=== PATIENT | male | born 1960 | race Caucasian/White ===

== ENCOUNTER 2017-09-14 12:04 | Day surgery (SDC) | payer BC ==
[~2017-09-14] VITALS: Ht 177.8 cm; Wt 82.7 kg
[~2017-09-14 12:04] MED LIST: METPRE4DP PO; Norco 5-325 Ta1 EACH PO; Robaxin-750750 MG PO; VARE1 PO
== END 2017-09-14 14:50 | disposition home or self-care (01) ==
LOC: ORSCSDS 12:04
PROVIDERS: Surgery
PROC: 0DBM8ZX Excision of Descending Colon, Via Natural or Artificial Opening Endoscopic, Diagnostic (ICD-10-PCS; principal; 2017-09-14 13:45)
DX: Z12.11 Encounter for screening for malignant neoplasm of colon (principal); D12.4 Benign neoplasm of descending colon; F17.210 Nicotine dependence, cigarettes, uncomplicated; Z79.899 Other long term (current) drug therapy
CPT/HCPCS: 88305

== ENCOUNTER 2017-12-02 12:38 | Emergency (ER) | payer BC ==
[~2017-12-02] VITALS: Ht 175.3 cm; Wt 86.2 kg
[2017-12-02] MEDS ORDERED: Prednisone20 MG PO (13:00)
[2017-12-02] MEDS ORDERED: CYCL10 PO (13:11)
[2017-12-02] MEDS ORDERED: Norco 5-325 Ta1 EACH PO (13:11)
== END 2017-12-02 13:25 | disposition home or self-care (01) ==
LOC: ER 12:38
DX: M54.41 Lumbago with sciatica, right side (principal); G89.29 Other chronic pain; Z88.1 Allergy status to other antibiotic agents; Z79.52 Long term (current) use of systemic steroids; Z79.899 Other long term (current) drug therapy; Z87.891 Personal history of nicotine dependence
CPT/HCPCS: 96372; 99283; J1885

== ENCOUNTER → 2018-11-20 | Outpatient (CLI) | payer BC ==
[~2018-11-20] MED LIST changes: +CYCL10 PO; +Prednisone20 MG PO
[2018-11-20 12:34] LABS: BASOPHILS ABSOLUTE AUTO 0.05 K/mm3 (0.00-0.23); BASOPHILS PERCENT AUTO 1 % (0-2); EOSINOPHILS ABSOLUTE AUTO 0.04 K/mm3 (0.00-0.68); EOSINOPHILS PERCENT AUTO 1 % (0-6); Hematocrit 43.5 % (37.0-53.0); Hemoglobin 15.7 g/dL (13.5-17.5); IMMATURE GRAN ABSOLUTE AUTO 0.01 K/mm3 (0.00-0.10); IMMATURE GRAN PERCENT AUTO 0 % (0-1); LYMPHOCYTES ABSOLUTE AUTO 3.08 K/mm3 (0.84-5.20); LYMPHOCYTES PERCENT AUTO 46 % (21-46); MONOCYTES ABSOLUTE AUTO 0.39 K/mm3 (0.16-1.47); MONOCYTES PERCENT AUTO 6 % (4-13); Mean Corpuscular HGB 32.8 pg (26.0-34.0); Mean Corpuscular HGB Conc 36.1 g/dL (31.5-36.5); Mean Corpuscular Volume 91 fL (80-100); Mean Platelet Volume 8.6 fL (9.1-12.4); NEUTROPHILS ABSOLUTE AUTO 3.13 K/mm3 (1.96-9.15); NEUTROPHILS PERCENT AUTO 47 % (41-73); Platelet Count 310 K/mm3 (150-400); RDW Coefficient Variation 12.9 % (11.7-14.2); RDW Standard Deviation 43.3 fL (35.1-46.3); Red Blood Cell Count 4.78 M/mm3 (4.30-5.90)
[2018-11-20 12:51] LABS: Alanine Aminotransfer (ALT/SGP 63 U/L (12-78); Albumin, Blood 4.1 g/dL (3.4-5.0); Albumin/Globulin Ratio 0.9 (0.8-1.8); Alk Phos 79 U/L (40-126); Anion Gap 12 mmol/L (6-16); Aspartate Aminotrans (AST/SGOT 41 U/L (12-37); Bilirubin, Total 0.6 mg/dL (0.1-1.0); Blood Urea Nitrogen 13 mg/dL (8-24); Bun/Creatinine Ratio 12.6 (12.0-20.0); CO2, Blood 27 mmol/L (21-32); CPK Creatine Kinase 248 U/L (39-308); Calcium, Blood 8.8 mg/dL (8.5-10.1); Chloride, Blood 100 mmol/L (98-108); Creatinine, Blood 1.03 mg/dL (0.60-1.20); Free Thyroxine 1.06 ng/dL (0.70-1.60); Globulin, Blood 4.5 g/dL (2.2-4.0); Glomerular Filtration Rate >60 (60-); Glucose, Blood 100 mg/dL (70-99); Potassium, Blood 4.1 mmol/L (3.5-5.5); Sodium, Blood 139 mmol/L (136-145); Thyroid Stimulating Hormone 1.071 uIU/mL (0.360-4.800); Total Protein, Blood 8.6 g/dL (6.4-8.2); Troponin I <0.017 ng/mL (0.000-0.040)
== END | disposition home or self-care (01) ==
LOC: LAB SHORT 12:25 → LAB EV 12:25
PROVIDERS: General Practice
DX: R00.0 Tachycardia, unspecified (principal); R53.81 Other malaise
CPT/HCPCS: 80053; 82550; 83690; 84439; 84443; 84484; 85025

== ENCOUNTER → 2020-06-21 | Outpatient (CLI) | payer BC | END | disposition home or self-care (01) | LOC: LAB EV 09:56 → LAB SHORT 09:56 | DX: L03.031 Cellulitis of right toe (principal) | CPT/HCPCS: 87070; 87077; 87147; 87186; 87205 ==

== ENCOUNTER 2024-08-19 11:18 | Day surgery (SDC) | payer BC ==
[~2024-08-19] VITALS: Ht 175.3 cm; Wt 94.1 kg
[~2024-08-19 11:18] MED LIST changes: +ATOR10; +CENTRUM SILVER1 EAC2; +IBUP200; +Lactated Ringer's 1,000 ML IV ONE
[2024-08-19] MEDS ORDERED: Lactated Ringer's 1,000 ML IV ONE (11:36)
[2024-08-19] MEDS ORDERED: CeFAZolin Sodium 2,000 MG VIAL ONE (12:20)
[2024-08-19] MEDS ORDERED: NS 50 ML IV ONE (12:21)
[2024-08-19] MEDS ORDERED: Lidocaine HCl 2% 10 ML SDA ONE (12:33)
[2024-08-19] MEDS ORDERED: propofoL 50 ML IV ONE (14:03)
[2024-08-19] MEDS ORDERED: propofoL 20 ML IV ONE (14:07)
[2024-08-19] MEDS ORDERED: FentaNYL Citrate 50 MCG/ML 2 ML Injection ONE (14:08)
[2024-08-19] MEDS ORDERED: Dexamethasone Sod Phos 10 MG/ML 1ML VIAL ONE (14:18)
[2024-08-19] MEDS ORDERED: Ketorolac Tromethamine 30mg Vial ONE (14:18)
[2024-08-19] MEDS ORDERED: Ondansetron HCl 2 MG / ML 2ML Vial ONE ×2 (14:18→15:44)
--- NOTE | 2024-08-19 14:27 | NUR ---
08/19/24 1427 Kely Osorio LATE ENTRY PT UPDATED THROUGHOUT HIS PRE OP STAY OF THE DELAY IN HIS CASE. PT HAD HIS WITH HIM AT BEDSIDE AND CALL LIGHT IN REACH. WARM BLANKETS PROVIDED AND BED ADJUSTED X3 FOR COMFORT.
[2024-08-19] MEDS ORDERED: Bupivacaine 0.5% W/EPI 1:200000 SDV 30ML INJ ONE (14:35)
[2024-08-19] MEDS ORDERED: Phenylephrine HCl 100 MCG/ML-NS 10MLSYR (1MG/10ML) ONE (14:37)
[2024-08-19 16:04] VITALS: BP 151/97
--- NOTE | 2024-08-19 16:22 | NUR ---
08/19/24 4982 CAMERON CHAPA PT DOING VERY WELL. NAUSEA HAD PASSED AFTER ZOFRAN WAS GIVEN. PT CONTINUED TO DENY PAIN. PT AND BOTH VERY PLEASANT. PICKED UP RX'S AT PHARMACY PRIOR TO PT DC.
== END 2024-08-19 16:15 | disposition home or self-care (01) ==
LOC: ORSCSDS 11:18
PROVIDERS: Podiatrist Foot & Ankle Surgery
PROC: 0QBN0ZZ Excision of Right Metatarsal, Open Approach (ICD-10-PCS; principal; 2024-08-19 12:45)
DX: M20.5X1 Other deformities of toe(s) (acquired), right foot (principal); E78.5 Hyperlipidemia, unspecified; E66.9 Obesity, unspecified; Z68.30 Body mass index [BMI] 30.0-30.9, adult; Z87.891 Personal history of nicotine dependence; Z79.899 Other long term (current) drug therapy
CPT/HCPCS: J0690; J1100; J1885; J2003; J2371; J2405; J2704; J3010; J7120

== ENCOUNTER → 2025-01-05 | Outpatient (CLI) | payer BC ==
[~2025-01-05] MED LIST changes: -Lactated Ringer's 1,000 ML IV ONE
== END ==
LOC: LAB 08:08 → LAB SHORT 08:08
DX: D48.5 Neoplasm of uncertain behavior of skin (principal)
CPT/HCPCS: 88305

== ENCOUNTER 2025-08-19 20:36 | Emergency (ER) | payer BC ==
[~2025-08-19] VITALS: Ht 175.3 cm; Wt 87.1 kg
[2025-08-19 20:45] VITALS: BP 167/99
== END 2025-08-19 22:25 | disposition home or self-care (01) ==
LOC: ER 20:36
DX: S61.412A Laceration without foreign body of left hand, initial encounter (principal); Z87.891 Personal history of nicotine dependence; Z88.1 Allergy status to other antibiotic agents; Z79.899 Other long term (current) drug therapy; W45.0XXA Nail entering through skin, initial encounter
CPT/HCPCS: 12002; 99282-25